=== PATIENT | female | born 1955 | race Caucasian/White ===

== ENCOUNTER 2025-01-20 15:52 | Day surgery (SDC) | payer MEDICARE, OTHER, SELFPAY ==
[2025-01-20] VITALS (19 sets, daily range): BP systolic 85–176; BP diastolic 40–90; PULSE 68–78; BMI 23.0
[2025-01-20 12:01] LABS: Hematocrit 41.9 % (37.0-47.0); Hemoglobin 13.4 g/dL (12.0-16.0); Mean Corp Hgb Conc. 32.0 g/dL (33.0-37.0); Mean Corpuscular Volume 88.8 fL (81.0-99.0); Nucleated Red Blood Cells % 0 %; Platelet Count 318 10^3/uL (130-400); Red Cell Dist. Width 13.4 % (11.5-14.5)
[2025-01-20 12:09] LABS: ALT (SGPT) 13 U/L (0-35); AST (SGOT) 21 U/L (14-36); Albumin 4.4 g/dl (3.5-5.0); Alkaline Phosphatase 57 U/L (38-126); Blood Urea Nitrogen 18 mg/dl (7-17); Calcium 9.4 mg/dl (8.4-10.2); Carbon Dioxide 29 mmol/L (22-30); Chloride 101 mmol/L (98-107); Estimated Creatinine Clearance 73 ml/min; Glucose 92 mg/dl (70-99); Potassium 4.2 mmol/L (3.5-5.1); Sodium 134 mmol/L (135-145); Total Protein 7.0 g/dl (6.3-8.2); eGFR > 60.00
--- NOTE | 2025-01-20 12:09 | ED.GENMED ---
History of Present Illness
<Angelique Turner PA-C - Last Filed: 01/20/25 19:43>
General
Chief Complaint: Cardiac Symptoms
Source: patient
Exam Limitations: none
Time Seen by Provider: 01/20/25 11:57
History of Present Illness
History of Present Illness:
69yoF with a history of asthma and hyperlipidemia presenting for evaluation of near syncope. She reports episodes of feeling like she is going to pass out over the past 2-3 weeks. Symptoms were initially sporadic but have become more frequent.
Symptoms tend to last a minute or two before resolving. Afterwards, she feels like 'something is moving across my chest.' Symptoms come on randomly. She has nodded off at times but does not believe she has lost consciousness. She discontinued
her statin for fear that this was causing her symptoms as her rosuvastatin was increased from 20mg to 40mg daily about a month ago. She started having nausea and vomiting last night. No chest pain, shortness of breath, abdominal pain.
Phy Exam
<Angelique Turner PA-C - Last Filed: 01/20/25 19:43>
General Physical Exam
General Presentation: well appearing and no apparent distress
General Skin: warm and dry
General Habitus: normal
General Mental: alert
ENT Exam
ENT Exam: normocephalic
Cardiovascular Exam
Cardiovascular Exam: regular rate/rhythm, no edema, no murmur and normal peripheral pulses
Pulmonary Exam
Pulmonary Exam: lungs clear, no respiratory distress, no rales, no crackles, no rhonchi and no wheezing
Neurological Exam
Neurological Exam: alert
[place] Coma Scale
Eye Opening: Spontaneous
Verbal Response: Oriented
Motor Response: Obeys Commands
GCS Total Score: 15
Skin Exam
Skin Exam: normal color and warm/dry
Psychiatric Exam
Psychiatric Exam: normal mood/affect
Course
<Angelique Turner PA-C - Last Filed: 01/20/25 19:43>
Orders/Labs/Results
Orders:
Orders
01/20/25 11:05
Electrocardiogram (*1) Urgent
Reason for Study: Chest Pain
EKG- Treatment ONCE
01/20/25 11:45
Troponin I Urgent
01/20/25 11:46
Complete Blood Count/With Diff Urgent
Comprehensive Metabolic Panel Urgent
Magnesium Urgent
Comment: ADD ON
TSH Urgent
Comment: ADD ON
01/20/25 12:14
Add On- LAB Urgent
Tests Added?: magnesium, TSH
Cardiac Monitoring- Treatment ONCE
01/20/25 12:50
CARDIOLOGY CONSULT Urgent
Consulting Provider: Pilo Daigle
Was physician already notified: Yes
01/20/25 Dinner
Cholesterol Lowering
At Your Request: Limited Participation
Does patient need a safe tray?: No
Cholesterol Lowering: Sodium, 2 Gram
01/20/25 15:28
Admit/Transfer Patient As Directed
Co-Sign Provider:
Level of Care: Observation services
Assign to:: Telemetry
Physician / Group: hospitalist
Diagnosis: near syncope
Reason for Telemetry: Syncope
Date to Stop Telemetry: 01/22/25
Time to Stop Telemetry: 11:00
Reason for Hospitalization: Near syncope
01/20/25 15:29
Code Status As Directed
Resuscitation Status: Full Code
01/20/25 16:43
Bisacodyl [Dulcolax] 10 mg RECTAL [id number] PRN
Docusate W/Senna [Senokot-S] 1 tablet PO BIDPRN PRN
Polyethylene Glycol Powder [Miralax] 17 grams PO DAILYPRN PRN
01/20/25 16:43
Echo 2D MMode Color/Doppler Routine
Reason for Study: syncope
Activity As Directed
Activity Level: Out of Bed-Early Mobility
Vital Signs As Directed
Frequency: Per unit guidelines
DX Deep Vein Thrombosis Video Routine
01/20/25 18:00
Enoxaparin Sodium [Lovenox] 40 mg SC QPM
01/21/25 06:00
Basic Metabolic Panel IN AM
Complete Blood Count/No Diff IN AM
Magnesium IN AM
01/22/25 11:00
DC Protocol for Telemetry ONCE
Abnormal Lab Results
01/20/25
11:46
MCHC 32.0 L g/dL
(33.0-37.0)
Lymphocytes % 19.0 L %
(20.5-51.1)
Sodium 134 L mmol/L
(135-145)
BUN 18 H mg/dl
(7-17)
01/20/25 11:46
01/20/25 11:46
Vital Signs
Initial and Last Documented VS:
Initial Vital Signs
Temp Pulse Resp BP Pulse Ox
97.8 F 75 16 176/77 100
01/20/25 11:01 01/20/25 11:01 01/20/25 11:01 01/20/25 11:01 01/20/25 11:01
Last Documented Vital Signs
Temp Pulse Resp BP Pulse Ox
98.3 F 71 18 145/70 98
01/20/25 17:02 01/20/25 17:02 01/20/25 17:02 01/20/25 17:02 01/20/25 17:19
<Maureen Kleley MD - Last Filed: 01/20/25 15:44>
Orders/Labs/Results
Orders:
Orders
01/20/25 11:05
Electrocardiogram (*1) Urgent
Reason for Study: Chest Pain
EKG- Treatment ONCE
01/20/25 11:45
Troponin I Urgent
01/20/25 11:46
Complete Blood Count/With Diff Urgent
Comprehensive Metabolic Panel Urgent
Magnesium Urgent
Comment: ADD ON
TSH Urgent
Comment: ADD ON
01/20/25 12:14
Add On- LAB Urgent
Tests Added?: magnesium, TSH
Cardiac Monitoring- Treatment ONCE
01/20/25 12:50
CARDIOLOGY CONSULT Urgent
Consulting Provider: Pilo Daigle
Was physician already notified: Yes
01/20/25 Dinner
Cholesterol Lowering
At Your Request: Limited Participation
Does patient need a safe tray?: No
Cholesterol Lowering: Sodium, 2 Gram
01/20/25 15:28
Admit/Transfer Patient As Directed
Co-Sign Provider:
Level of Care: Observation services
Assign to:: Telemetry
Physician / Group: hospitalist
Diagnosis: near syncope
Reason for Telemetry: Syncope
Date to Stop Telemetry: 01/22/25
Time to Stop Telemetry: 11:00
Reason for Hospitalization: Near syncope
01/20/25 15:29
Code Status As Directed
Resuscitation Status: Full Code
01/20/25 16:43
Bisacodyl [Dulcolax] 10 mg RECTAL [id number] PRN
Docusate W/Senna [Senokot-S] 1 tablet PO BIDPRN PRN
Polyethylene Glycol Powder [Miralax] 17 grams PO DAILYPRN PRN
01/20/25 16:43
Echo 2D MMode Color/Doppler Routine
Reason for Study: syncope
Activity As Directed
Activity Level: Out of Bed-Early Mobility
Vital Signs As Directed
Frequency: Per unit guidelines
DX Deep Vein Thrombosis Video Routine
01/20/25 18:00
Enoxaparin Sodium [Lovenox] 40 mg SC QPM
01/21/25 06:00
Basic Metabolic Panel IN AM
Complete Blood Count/No Diff IN AM
Magnesium IN AM
01/22/25 11:00
DC Protocol for Telemetry ONCE
Abnormal Lab Results
01/20/25
11:46
MCHC 32.0 L g/dL
(33.0-37.0)
Lymphocytes % 19.0 L %
(20.5-51.1)
Sodium 134 L mmol/L
(135-145)
BUN 18 H mg/dl
(7-17)
01/20/25 11:46
01/20/25 11:46
Vital Signs
Initial and Last Documented VS:
Initial Vital Signs
Temp Pulse Resp BP Pulse Ox
97.8 F 75 16 176/77 100
01/20/25 11:01 01/20/25 11:01 01/20/25 11:01 01/20/25 11:01 01/20/25 11:01
Last Documented Vital Signs
Temp Pulse Resp BP Pulse Ox
98.3 F 71 18 145/70 98
01/20/25 17:02 01/20/25 17:02 01/20/25 17:02 01/20/25 17:02 01/20/25 17:19
Marylt;Angelique Turner PA-C - Last Filed: 01/20/25 19:43>
MDM/Problems Addressed
Differential Diagnosis Includes:
69yoF here with recurrent episodes of near syncope x 2-3 weeks that are becoming more frequent. Patient had an episode prior to initial exam. Nursing staff noted that patient became bradycardic while she was sitting on the stretcher. Telemetry
reviewed and HR dropped to 40. Sinus bradycardia noted, no heart block seen. Differential diagnosis includes: Vasovagal episodes, symptomatic bradycardia, sick sinus syndrome, thyroid dysfunction
Initial ED plan: Workup initiated in triage. EKG shows normal sinus rhythm with short MS interval. Basic labs normal. Will add on magnesium, TSH, troponin, and discuss with cardiology.
<Angelique Turner PA-C - Last Filed: 01/20/25 19:43>
*Pulse Oximetry
SaO2: 98
Oxygen Mode of Delivery: Room air
Patient hypoxic: no
*EKG
Interpreted by ED Provider?: Yes
EKG Intrepretation Date: 01/20/25
Heart Rate: 76
Rate: normal
Rhythm: sinus
[place]: normal axis
Interval: short MS
QRS Pattern: normal QRS
Ischemia: non-specific ST changes
*Critical Care Note
Total Time (30-74mins, 75-104mins- exclusive of procedures): Not Applicable
<Angelique Turner PA-C - Last Filed: 01/20/25 19:43>
Update Note
Update Note:
TSH within the normal limits. Troponin undetectable. Patient had multiple subsequent episodes of near syncope while in ED. Cardiology consult pending. At this point, will admit for further evaluation.
ED Attending Note
<Angelique Turner PA-C - Last Filed: 01/20/25 19:43>
-
Portions of this chart may have been created with voice recognition software.� Occasional wrong word or��sound alike� substitutions may have occurred due to the inherent limitations of voice recognition software.
<Maureen Kelley MD - Last Filed: 01/20/25 15:44>
ED Attending Note
Patient seen and examined by attending physician: Yes
I performed the substantive portion of visit, reviewed & personally made and approve the management plan that is documented in note by myself or DASHAWN.: Yes
ED Attending Note:
I have seen and evaluated the patient with a [id number] encounter. I have spoken to the [DASHAWN] and involved in the medical history, the physical exam, medical decision making.
Evaluation and management service: agree unless noted differently below.
Results interpretation: agree unless noted differently below.
69-year-old woman who is otherwise healthy presenting to the emergency department near syncopal event. Patient states for the past 2 days with episodes of feeling she is going to pass out. Has never passed out. Denies any chest pain difficulty
breathing palpitations nausea vomiting diarrhea. On arrival patient's heart rate is in the 70s. Exam is otherwise reassuring. While patient was in the emergency department she did have an episode of bradycardia. Telemetry reviewed and it did
appear sinus. Will check blood work including thyroid and magnesium. EKG per my interpretation normal sinus rhythm with no obvious AV block. Given ongoing symptoms with the episodes of bradycardia and multiple episodes of near syncope in the
emergency department patient will benefit from admission.
Discharge Plan
Departure
Patient Disposition: Admit
Date of Disposition: 01/20/25
Time of Disposition: 14:57
Presentation/result/management discussed w/ accepting MD/DO: Hospitalist
Discharge Problem:
Near syncope
Interventions
Interventions:
*Risk Screen - Suicide Last Done: 01/20/25 11:01
*General Assessment Last Done: 01/20/25 11:01
*Neglect/Abuse Screening Last Done: 01/20/25 11:34
*ED- Fall Risk Assessment Last Done: 01/20/25 11:36
*ED COVID-19 Vaccine History Last Done: 01/20/25 11:36
*ED Influenza Vaccine History Last Done: 01/20/25 11:36
*Nursing Disposition Last Done: 01/20/25 16:35
ED- Pulmonary Assessment Last Done: 01/20/25 11:58
ED- Cardiac Assessment Last Done: 01/20/25 11:58
Discharge Date and Time
Discharge Date/Time: 01/20/25 16:44
[2025-01-20 12:43] LABS: Magnesium 2.2 mg/dl (1.6-2.3)
[2025-01-20 13:00] LABS: Troponin I < 0.012 ng/ml
--- NOTE | 2025-01-20 15:30 | CON.CAR ---
Addendum entered and electronically signed by Pilo Daigle DO 01/21/25 08:49:
I saw and examined the patient 01/20/2025 at 16:40
The Punch Finisher's note was reviewed and I agree with the note.
Comment:
Plan:
Admit for observation on tele for recurrent bradycardia and pauses
Check echo
She is not on any AV orestes blockers as outpt
Recurrent symptoms progressing over the last few weeks.
Trop negative.
We discussed indication for PPM if she has worsening symptomatic bradycardia or significant pauses.
Original Note:
Consultation
Consultation Request
Date/Time Consultation Performed: 01/20/25
Requesting Provider: Angelique Turner PA-C
Performing Provider: Kelly Nicholas PA-C for Dr. Daigle
Reason for Consultation: presyncope, bradycardia
Medical History
-
Chief Complaint: presyncope
History of Present Illness:
Patient is a 69 yo F with PMH of HLD, asthma, chronic sinus issues s/p multiple sinus surgeries on Neucala who presents due to 5-6 days of worsening presyncopal events. Patient reports has feeling that she is 'going down', gets lightheaded, and sits
down, lies down, or puts her head down on table and symptoms pass. She does not believe she has ever actually passed out with one of the episodes. She denies cardiac issues including susy or tachycardia or arrhythmias to her knowledge or in family
members. Denies new medications or supplements. Denies thyroid issues in past. States she stopped crestor after the dose was increased due to issues with word finding/inability to get them out. She states today while in ER was first time she had
episode while lying down. HR transiently decreased to 40s however then quickly recovered. Cardiology consulted for evaluation. Currently HR in 80s.
PMH:
HLD
Asthma
chronic sinus issues s/p multiple sinus surgeries on Neucala
Past Medical History
Past Medical History: Other (in HPI)
Social History
Tobacco: Non-Smoker
Alcohol: Occasional
Drug: None
Personal:
Living: With Family
Employment: Retired
Family History
Family History: Diabetes
Allergies / Home Medications
Allergy/AdvReac Type Severity Reaction Status Date / Time
brompheniramine (From Allergy Hives Verified 01/20/25 11:06
Drixoral)
dexbrompheniramine (From Allergy Hives Verified 01/20/25 11:06
Drixoral)
propoxyphene (From Darvon) Allergy Hives Verified 01/20/25 11:06
pseudoephedrine (From Allergy Hives Verified 01/20/25 11:06
Drixoral)
Review of Systems
-
History Source: Patient and Family
All other systems: Negative unless noted
Physical Exam
Vital Signs
Temp Pulse Resp BP Pulse Ox
97.8 F 65 17 107/40 99
01/20/25 11:01 01/20/25 14:45 01/20/25 14:45 01/20/25 14:37 01/20/25 14:45
Lab Results
01/20/25 11:46
01/20/25 11:46
Troponin I < 0.012 ng/ml 01/20/25 11:45
Physical Exam
General: No Apparent Distress and Comfortable
HEENT: Normocephalic, Anicteric and Moist Mucous Membranes
Respiratory: Clear and Non Labored Respirations
Cardiac: S1/S2 and Regular Rhythm
GI: Soft, Non Tender, Non Distended and Normal Bowel Sounds
Musculoskeletal: No Clubbing, No Cyanosis and No Edema
Skin: Warm and Dry
Neuro: AO x 3
Impression / Plan
-
Primary Front Elevator Operator: none
Assessment:
Presentation with recurrent presyncope/lightheadedness
Sinus bradycardia, transient
Negative trop x1
HLD
Asthma
Chronic sinus issues s/p multiple sinus surgeries on Neucala
ECHO 01/21/25: pending
Plan:
-Presented with episodes of recurrent presyncope over the last 5-6 days, progressive.
-denies CP, SOB, palpitations
-EKG SR. trop negative
-review of tele in ER with 2 episodes of transient sinus bradycardia. no pauses or high grade av block. ? vagal
-avoid dehydration
-check TSH
-check echo
-monitor on tele overnight. discussed pending findings, may require longer term OP cardiac monitoring
-consider check head CT with recent complaint of transient word finding difficulty, headaches, sinus issues, and episodes
-no present clear indication for PPM
-avoid av orestes blocking agents, not on as OP
-d/w resident. d/w patient and at bedside
Data Reviewed
-
EKG: Tracing Personally Visualized and interpreted
Labs: Labs Reviewed by me
Old Records: Reviewed
--- NOTE | 2025-01-20 15:31 | HPS.HSE ---
Family Physician
-
Family Physician: * NONE
Chief Complaint
-
lightheadedness
History of Present Illness
69-year-old female with history of hyperlipidemia,asthma, seasonal allergies presents today with near syncope. Patient notes that she has been feeling lightheaded for the past 1-1/2-week but the frequency increased yesterday and this morning. She
denies room spinning, falls, urinary symptoms, weakness, slurred speech. She notes a feeling of passing out. The symptoms are unrelated to change in position. Symptoms tend to last a minute or 2 before resolving. She had discontinued her statin
and the fear that this must be contributing to her symptoms, her Crestor was increased from 20 mg to 40 mg daily about a month ago. She only took the medication for few days and then stopped due to side effects, feeling like- ' words not coming out
of my mouth'. She denies family history of sudden cardiac arrest. She takes Nucala injection for asthma. She admits to mild headache, not new. She denies LOC, confusions, hallucinations. In the ED, 3 episodes of lightheadness and HR did drop to
43. Currently HR in 80s.
Medical History
Past Medical History
Past Medical History: Reports Hypercholesterolemia
Past Surgical History: Reports Gynocological ()
Social History
Tobacco: Non-smoker
Alcohol: None
Drug: None
Personal:
Living: With Family
Employment: Retired
Family History
Family History: Not pertinent
Allergies / Home Medications
Allergies reflects when Allergies were last updated in [facility].
Home Medications with original date entered in [facility]
Allergy/Medication List:
Allergies
Allergy/AdvReac Type Severity Reaction Status Date / Time
brompheniramine (From Allergy Hives Verified 01/20/25 11:06
Drixoral)
dexbrompheniramine (From Allergy Hives Verified 01/20/25 11:06
Drixoral)
propoxyphene (From Darvon) Allergy Hives Verified 01/20/25 11:06
pseudoephedrine (From Allergy Hives Verified 01/20/25 11:06
Drixoral)
Review of Systems
-
History Source: Patient
A 12 point ROS was completed and negative except as noted: Yes
Physical Exam
Vital Signs
Vital Signs
Temp Pulse Resp BP Pulse Ox
97.8 F 65 17 107/40 99
01/20/25 11:01 01/20/25 14:45 01/20/25 14:45 01/20/25 14:37 01/20/25 14:45
Physical Exam
General: Comfortable and Conversant
HEENT: NormoCephalic and Anicteric
Respiratory: Clear
Cardiac: S1/S2 and Regular Rhythm
GI: Soft, Non Tender and Non Distended
Musculoskeletal: No Edema
Skin: Warm and Dry
Neuro: AO x 3
Hematologic/Lymphatic: No Lymphadenopathy
Psych: Calm
Laboratory Results
-
01/20/25 11:46
01/20/25 11:46
Laboratory Results
Total Bilirubin 0.6 mg/dl (0.2-1.3) 01/20/25 11:46
AST 21 U/L (14-36) 01/20/25 11:46
ALT 13 U/L (0-35) 01/20/25 11:46
Alkaline Phosphatase 57 U/L (38-126) 01/20/25 11:46
Troponin I < 0.012 ng/ml 01/20/25 11:45
Data Reviewed
-
Medical Tests (Nuc Med, Echo, EKG etc): Report Reviewed by me and Discussed with Physician
Impression/Plan
-
IMPRESSION:
Near syncope
History of hyperlipidemia
History of asthma
History of seasonal allergies
PLAN:
Near syncope
Differential diagnosis: Conduction abnormality, cardiac arrhythmia, stroke ( low threshold) seizures(low threshold)
Admit for observation
Serum sodium 134 likely due to dehydration
One episode of transient sinus bradycardia. Not on rate control medications.
Check echocardiogram
Check orthostatic vitals
Monitor on telemetry
Apartment Groundskeeper aware
Hold off on CT scan for now.
If patient remains asymptomatic dc on Holter monitor
Check TSh
Monitor electrolytes, vitals signs.
History of hyperlipidemia
Not on any medications currently
History of asthma
Continue Nucala, montelukast
Hold pseudoephedrine
History of seasonal allergies
On Immunotherapy injections outpatient.
Full code
Cholesterol-lowering diet
DVT prophylaxis-Lovenox
[2025-01-20 17:10] LABS: TSH 1.25 uIU/ml (0.47-4.68)
[2025-01-20] MEDS: LOVENOX 40 MG SC (17:33)
--- NOTE | 2025-01-20 19:15 | PTCARENOTE ---
Patient with two episodes of symptomatic bradycardia in the 40s. Patient states the episodes are more frequent but shorter in duration. Encouraged to use call william when OOB.
[2025-01-21] VITALS (35 sets, daily range): BP systolic 65–147; BP diastolic 40–105; BMI 22.7
[2025-01-21 06:21] LABS: Hematocrit 37.7 % (37.0-47.0); Hemoglobin 12.6 g/dL (12.0-16.0); Mean Corp Hgb Conc. 33.4 g/dL (33.0-37.0); Mean Corpuscular Volume 87.3 fL (81.0-99.0); Platelet Count 292 10^3/uL (130-400); Red Cell Dist. Width 13.3 % (11.5-14.5)
[2025-01-21 07:04] LABS: Blood Urea Nitrogen 15 mg/dl (7-17); Calcium 9.1 mg/dl (8.4-10.2); Carbon Dioxide 29 mmol/L (22-30); Chloride 106 mmol/L (98-107); Estimated Creatinine Clearance 73 ml/min; Glucose 89 mg/dl (70-99); Magnesium 2.3 mg/dl (1.6-2.3); Potassium 3.9 mmol/L (3.5-5.1); Sodium 137 mmol/L (135-145); eGFR > 60.00
--- NOTE | 2025-01-21 07:15 | PTCARENOTE ---
Patient with episodes of symptomatic bradycardia to 40s at 1935, 2005, 2054, and 1. Patient reports lightheadedness and that each episode is happening more frequently, but for shorter intervals and less intense.
[2025-01-21 07:56] LABS: Glucose - Point of Care 90 mg/dl (70-99)
[2025-01-21 08:15] LABS: Hematocrit 41.0 % (37.0-47.0); Hemoglobin 13.4 g/dL (12.0-16.0); Mean Corp Hgb Conc. 32.7 g/dL (33.0-37.0); Mean Corpuscular Volume 86.9 fL (81.0-99.0); Platelet Count 318 10^3/uL (130-400); Red Cell Dist. Width 13.3 % (11.5-14.5)
--- NOTE | 2025-01-21 08:19 | W.PN.CARDCBS ---
Addendum entered and electronically signed by Pilo Daigle DO 01/21/25 10:47:
I saw and examined the patient 01/21/2025 this AM .
The Decorating Supervisor's note was reviewed and I agree with the note.
Comment:
Plan:
Symptomatic bradycardia with significant drop in HR this AM and episodes last night.
Discussed PPM and EP eval and she was agreeable.
Transfer to IVU with Zoll pads in place.
Echo pending.
Discussed with pt, nursing, primary service and EP
Original Note:
Today's Communication / Plan
-
NPO. plan for PPM today
pads in place
transfer to IVU
check echo
Impression / Plan
-
Primary Director Of Product Marketing: none
Assessment:
Presentation with recurrent presyncope/lightheadedness
Symptomatic sinus bradycardia
Negative trop x1
HLD
Asthma
Chronic sinus issues s/p multiple sinus surgeries on Neucala
ECHO 01/21/25: pending
Plan:
-Presented with episodes of recurrent presyncope over the last 5-6 days, progressive.
-responded to rapid response called this AM for episode of presyncope associated with symptomatic bradycardia and pauses up to 5 seconds in duration
-pads in place. will transfer patient to IVU
-NPO for PPM today. procedure reviewed with patient in detail and she is agreeable to proceed.
-echo pending
-TSH WNL
-denies recent known exposure to ticks/recent tick bites
-head CT negative for acute abnormality
-avoid av orestes blocking agents, not on as OP
-d/w hospitalist, nursing, THERMOSTAT MAKER, EP
-CCT 34 minutes
Progress Note - Director Of Product Marketing
Subjective
Date of Service: January 21, 2025
reports feeling lightheaded associated with episode of bradycardia, states less severe than some of her episodes at home
Objective
Labs:
01/21/25 08:00
Labs
Hgb 13.4 g/dL (12.0-16.0) 01/21/25 08:00
Hct 41.0 % (37.0-47.0) 01/21/25 08:00
Plt Count 318 10^3/uL (130-400) 01/21/25 08:00
Sodium 137 mmol/L (135-145) 01/21/25 05:33
Potassium 3.9 mmol/L (3.5-5.1) 01/21/25 05:33
BUN 15 mg/dl (7-17) 01/21/25 05:33
Creatinine 0.6 mg/dL (0.6-1.0) 01/21/25 05:33
Glucose 89 mg/dl (70-99) 01/21/25 05:33
Troponins
01/20/25
11:45
Troponin I < 0.012
Vital Signs and I&O:
Vital Signs
Temp Pulse Resp BP Pulse Ox
98.5 F 63 16 145/65 95
01/21/25 07:55 01/21/25 07:55 01/21/25 07:55 01/21/25 07:55 01/21/25 07:55
Vital Signs
Temp Pulse Resp BP Pulse Ox
98.5 F 63 16 145/65 95
01/21/25 07:55 01/21/25 07:55 01/21/25 07:55 01/21/25 07:55 01/21/25 07:55
Physical Exam
Physical Exam
GEN: No distress, awake, alert, oriented x3
HEENT: supple, anicteric, mmm, eomi
LUNGS: CTA B/L, no wheezes/rales
CV: Reg, S1/S2, no murmur
ABD: soft, BS+, NT/ND
EXT: No cyanosis, clubbing, edema
NEURO: Gross non-focal
SKIN: Warm, pink, dry. No rash
--- NOTE | 2025-01-21 08:30 | RR ---
property assessment monitor alarming HR 30. Patient appeared drowsy with gazed look, not communicating.
A Rapid Response was called on this patient, please see Rapid Response form.
[2025-01-21 08:39] LABS: Troponin I < 0.012 ng/ml
--- NOTE | 2025-01-21 08:44 | PTCARENOTE ---
received pt from 4E, report from RN. SR on monitor, vitals stable at this time. on 2L o2, 99%. Oriented to room and unit. Call william within reach.
--- NOTE | 2025-01-21 08:51 | W.PN.HOSP.TC ---
Today's Communication/Plan
-
Pacemaker
Echo
Assessment / Plan
Assessment / Plan
Gen-AAOx3, NAD
HEENT-NC, AT, anicteric, clear oral mm
Neck-supple
CV-reg, no M, +S1/S2
Lungs-clear B/L
Abd-soft, NT, ND
Ext-no edema
Musculoskeletal-no cyanosis, clubbing
Skin-warm and dry
Neuro-grossly non-focal
Psych-calm, cooperative
Symptomatic bradycardia -near syncopal episodes. Had another event this morning characterized by syncope according to nurses. Sinus pause on monitor.
Discussed with cardiology plans for permanent pacemaker today.
Transferred to IVU this morning. Keep NPO.
TSH 1.25.
Echocardiogram pending.
Hyponatremia - resolved.
Asthma -without exacerbation. On injections of Nucala. Montelukast. Advair, albuterol.
Hyperlipidemia -she discontinued rosuvastatin 6 weeks ago.
Allergic rhinitis
Full code
Anticipated Discharge: 24 - 48 hours
Subjective/Interval History
-
Date of Service: January 21, 2025
Patient seen and examined after rapid response was called for bradycardia. She is now awake, alert, without complaints.
Objective Data
-
Labs:
Laboratory Results
01/21/25 01/21/25 01/21/25
05:33 08:00 08:22
WBC 6.1 5.7
Hgb 12.6 13.4
Hct 37.7 41.0
Plt Count 292 318
Sodium 137 Cancelled Pending
Potassium 3.9 Cancelled Pending
Chloride 106 Cancelled Pending
Carbon Dioxide 29 Cancelled Pending
BUN 15 Cancelled Pending
Creatinine 0.6 Cancelled Pending
Glucose 89 Cancelled Pending
Calcium 9.1 Cancelled Pending
Total Bilirubin Cancelled Pending
AST Cancelled Pending
ALT Cancelled Pending
Alkaline Phosphatase Cancelled Pending
Vital Signs:
Vital Signs
Temp Pulse Resp BP Pulse Ox
98.5 F 78 16 136/66 95
01/21/25 07:55 01/21/25 08:45 01/21/25 07:55 01/21/25 08:38 01/21/25 07:55
Review of Systems
-
History Source: Patient
All other systems: Reviewed and negative
[2025-01-21] MEDS: 0.45%NACL 1000 IV (09:44)
--- NOTE | 2025-01-21 10:29 | W.PN.UPDATE ---
Update Note
Progress Note Update
Briefly, patient is a very pleasant 69-year-old female with a past medical history significant for dyslipidemia, asthma who presented due to worsening fatigue, near syncope, lightheadedness found to have symptomatic sinus bradycardia. During
hospitalization, patient experienced episodes of significant pauses leading to near syncope and altered mental status. Patient not on AV orestes blocking agents. Due to patient's significant symptomatic sinus bradycardia with altered mental status
and near syncope, patient to benefit from implantation of dual-chamber pacemaker. Regarding pacemaker, we discussed pacemaker indications and device implant in detail. For implant there is an approximate 1:1000 risk of NH/stroke/ and a 1% risk
of pneumothorax/tamponade/infection/bleeding. We also discussed post procedure implant restrictions including positions to avoid with implant arm for first six weeks after implant as well as driving restrictions. I took time to answer all questions.
Patient undergoing echocardiogram which is pending. Consent signed, patient remains n.p.o.
[2025-01-21 11:59] LABS: ALT (SGPT) 14 U/L (0-35); AST (SGOT) 23 U/L (14-36); Albumin 4.2 g/dl (3.5-5.0); Alkaline Phosphatase 57 U/L (38-126); Blood Urea Nitrogen 13 mg/dl (7-17); Calcium 9.1 mg/dl (8.4-10.2); Carbon Dioxide 27 mmol/L (22-30); Chloride 106 mmol/L (98-107); Estimated Creatinine Clearance 73 ml/min; Glucose 95 mg/dl (70-99); Potassium 3.9 mmol/L (3.5-5.1); Sodium 138 mmol/L (135-145); Total Protein 6.8 g/dl (6.3-8.2); eGFR > 60.00
--- NOTE | 2025-01-21 12:06 | CM ---
Reviewed chart. Met with and Mrs. Zelaya to review discharge plans. she states prior to admission she resides with her spouse in a two story hom3 with three steps to enter from the garage and two steps from the front. She states she has a full
flight of step to get to bedroom/full bathroom. She states she a powder room on the first floor. She states prior to admission she was independent with ambulation and adls. She states she does not have any DME in the home. She states she has a
prescription plan with [facility] and uses [facility]. The discharge plan is to return home with her spouse when medically stable.
--- NOTE | 2025-01-21 13:18 | PTCARENOTE ---
Pt left for labor arbitrator hearing office. Report given to RN. Pt wiped with CHG. at bedside updated on plan.
--- NOTE | 2025-01-21 13:25 | ITS.CL.PACE ---
Supervisor Print Line - Pacemaker Implant
Pacemaker Implant
Procedure Report:
Primary Spanish Linguist: Dr Pilo Daigle
Procedure Date: 01/21/2025
Name of procedure:
1. Placement of a dual-chamber pacemaker with left bundle area pacing lead for conduction system pacing
2. Subclavian venography
History:
1. Patient is a very pleasant 69-year-old female with a past medical history significant for dyslipidemia, asthma who presented due to worsening fatigue, near syncope, lightheadedness found to have symptomatic sinus bradycardia. During
hospitalization, patient experienced episodes of significant pauses >5 seconds leading to near syncope and altered mental status. Patient not on AV orestes blocking agents. Due to patient's significant symptomatic sinus bradycardia with altered
mental status and near syncope, patient to benefit from implantation of dual-chamber pacemaker.
2. Please refer to H&P for complete history.
Indication:
Symptomatic sinus bradycardia
Symptomatic pauses without reversible etiology
Methods:
After informed consent was obtained, the patient was brought to the EP laboratory in a postabsorptive, nonsedated state. Peripheral IV access was established. Prophylactic antibiotics were administered prior to incision. Continuous ECG, blood
pressure, and pulse oximetry were initiated. Cardioversion patch electrodes were placed on the patient's chest and back. A grounding patch was applied to the skin. Sedation was administered by anesthesia services.
In order to define the extrathoracic portion of the subclavian vein and exclude significant venous obstruction or anomalous anatomy, subclavian venography was performed prior to the procedure. Using the patient's left peripheral IV, contrast was
injected and images were recorded. The left subclavian vein and SVC were found to be widely patent.
The left chest was prepared and draped in a sterile fashion. A time-out was performed. Local anesthesia was injected in the subcutaneous tissue in the infraclavicular area. An incision was made medial to the deltopectoral groove. The subcutaneous
tissue was dissected the level of the prepectoral fascia. A subcutaneous pocket was created. Under fluoroscopic guidance and with the assistance of the images from the venogram, 2 separate venipunctures were made using micropuncture and modified
Seldinger technique. These were performed in the extrathoracic portion of the subclavian vein. Guidewires were passed and two peel-away sheaths were placed, and used to advance leads into the circulation.
Fluoroscopy was used to determine likely anatomic site for left bundle branch pacing. The [employer] C315 sheath was used to deliver the Medtronic 3830 Selectsecure pacing lead with the helix exposed just exposed from the sheath tip during continuous
monitoring when pacemapping the septum during gentle clockwise rotation to obtain a paced QRS morphology of a W pattern in lead V1. Once the suspected optimal site was identified, lead deployment was performed with several rapid rotations as paced
QRS morphology was intermittently monitored until a paced QRS complex in lead V1 demonstrated development of an R wave (qR or rSR). Unipolar pacing impedance dropped by approximately 100-200 ohms suggesting it had reached the left ventricular
subendocardial. Stable VEgm injury current is present throughout lead position and at end of case. Final unipolar pacing impedance is 930 Ohms. Unipolar pacing threshold is stable at 1.0 V @ 0.4 ms. The patient had pre-existing narrow QRS at
baseline. Final conduction system paced QRS complex duration is 101 ms, LVAT is 54 ms, and peak V5 -> peak V1 timing is 54 ms. The C315 sheath was slit under fluoroscopy ensuring lead position and stability.
Next, the right atrial lead was positioned in the right atrial appendage. Adequate sensing and pacing parameters were found, and no diaphragmatic stimulation was seen with high-output pacing. Both sheaths were split, and the leads were secured to
the fascia with Ethibond ties.
The pocket was flushed with antibiotic solution and hemostasis was assured. The generator was connected to the leads and placed inside the pocket. The device was sutured to the fascia. Antibiotic envelope was used. The wound was closed with 3
running layers of absorbable suture, and steri-strips were applied. Dressing applied over steri-strips in standard fashion.
Following the procedure, the patient was taken to the recovery area in stable condition. A chest x-ray to be obtained post procedure as routine.
Lead parameters and device programming:
- RA Lead ([employer], Model 5076, # [id number]): Sensing 2.6 mV, Pacing threshold 0.75 V at 0.4 ms, Imp 456 ohm
- RV Lead (Medtronic, Model 3830, #[id number]): Sensing 13.0 mV, Pacing threshold 0.5 V at 0.4 ms, Imp 684 ohm (bipolar)
- Device: Medtronic, Model W1 DR 01 pacemaker (# [id number]), programmed AAIR�DDDR mode switch on, 60-130 ppm
Conclusions:
1. Successful placement of a dual-chamber pacemaker with conduction system pacing (LBBAP)
2. Subclavian venography
Recommendations:
- Return to patient room
- Chest x-ray tonight, [facility] in AM.
- IV antibiotics while the patient is admitted.
- OK to resume home medications as indicated
- Pressure dressing to be removed in AM, aquacell to remain until wound check
- Follow-up will be arranged in the office in 7-10 days post-discharge for incision check
Tino Hernandez DO, FACC, RS
Clinical Cardiac Keyboard Teacher
cc: Dr Pilo Daigle
--- NOTE | 2025-01-21 15:41 | PTCARENOTE ---
Received pt back from labor and employment paralegal. Left arm immobilizer in place. Dressing CDI. EKG completed. SR on tele monitor, VSS. Educated on bedrest and restrictions. updated. Call william within reach.
[2025-01-21] MEDS: LOVENOX 40 MG SC (20:06)
[2025-01-21] MEDS: ANCEF 5 IV (22:03)
[2025-01-21] MEDS: SINGULAIR 10 MG PO (22:03)
--- NOTE | 2025-01-21 22:28 | PTCARENOTE ---
Assumed care on pt at change of shift, aaox3, having no c/o cp or SOB, Tylenol offered for soreness over pacer site and refused. SR on the monitor, HR 80's, Pox 96% RA, bp stable. Pressure dressing LCW clean dry and intact, no swelling or bleeding
noted, immobilizer kept on. Educated on limb restrictions and verbalizes understanding, call light within reach, POC on going.
[2025-01-22] MEDS: ANCEF 5 IV (04:50)
[2025-01-22 04:55] VITALS: BP 130/62
[2025-01-22 05:40] LABS: Hematocrit 36.9 % (37.0-47.0); Hemoglobin 12.1 g/dL (12.0-16.0); Mean Corp Hgb Conc. 32.8 g/dL (33.0-37.0); Mean Corpuscular Volume 86.6 fL (81.0-99.0); Platelet Count 261 10^3/uL (130-400); Red Cell Dist. Width 13.4 % (11.5-14.5)
[2025-01-22 05:59] LABS: Blood Urea Nitrogen 9 mg/dl (7-17); Calcium 8.9 mg/dl (8.4-10.2); Carbon Dioxide 27 mmol/L (22-30); Chloride 109 mmol/L (98-107); Estimated Creatinine Clearance 73 ml/min; Glucose 91 mg/dl (70-99); Potassium 3.7 mmol/L (3.5-5.1); Sodium 137 mmol/L (135-145); eGFR > 60.00
--- NOTE | 2025-01-22 06:43 | PTCARENOTE ---
Attempted x3 times to perform [facility] and not successful, will reattempt.
[2025-01-22 07:03] VITALS: BP 135/68
--- NOTE | 2025-01-22 07:18 | W.PN.CARDCBS ---
Today's Communication / Plan
-
stable for d/c
outpt follow up for wound check one week
follow up to be arranged. We will call pt with appt next 24 hrs
Impression / Plan
-
Primary Director Property: none
Impression:
Presentation with recurrent presyncope/lightheadedness
Symptomatic sinus bradycardia
Status post permanent pacemaker placement, dual-chamber Medtronic pacemaker, January 21, 2025
HLD
Asthma
Chronic sinus issues s/p multiple [facility]
ECHO 01/21/25: Normal left ventricular size and function with EF 60 to 65% and no significant valvular disease.
Plan:
-Presented with episodes of recurrent presyncope over the last 5-6 days, progressive. rapid response called this AM for episode of presyncope associated with symptomatic bradycardia and pauses up to 5 seconds in duration and pt transferred to IVU
for subsequent PPM placement 01/21.
Normal functioning permanent pacemaker.
Echo unremarkable
Troponins negative
Head CT negative for acute abnormality
Heart rate and blood pressure remained stable
Stable from a cardiac standpoint for discharge
Outpatient follow-up to be arranged including wound check 1 week.
Instructions reviewed
Discussed with nursing and primary service
Progress Note - Director Property
Subjective
Date of Service: January 22, 2025
Pt seen and examined. No complaints. No chest pain or shortness of breath.
Objective
Labs:
01/22/25 04:59
01/22/25 04:59
Labs
Hgb 12.1 g/dL (12.0-16.0) 01/22/25 04:59
Hct 36.9 % (37.0-47.0) L 01/22/25 04:59
Plt Count 261 10^3/uL (130-400) 01/22/25 04:59
Sodium 137 mmol/L (135-145) 01/22/25 04:59
Potassium 3.7 mmol/L (3.5-5.1) 01/22/25 04:59
BUN 9 mg/dl (7-17) 01/22/25 04:59
Creatinine 0.5 mg/dL (0.6-1.0) L 01/22/25 04:59
Glucose 91 mg/dl (70-99) 01/22/25 04:59
Troponins
01/20/25 01/21/25 01/21/25
11:45 08:00 08:00
Troponin I < 0.012 Cancelled < 0.012
Vital Signs and I&O:
Vital Signs
Temp Pulse Resp BP Pulse Ox
97.9 F 73 16 130/62 96
01/22/25 07:01 01/22/25 07:01 01/22/25 07:01 01/22/25 04:55 01/22/25 07:01
Vital Signs
Temp Pulse Resp BP Pulse Ox
97.9 F 73 16 130/62 96
01/22/25 07:01 01/22/25 07:01 01/22/25 07:01 01/22/25 04:55 01/22/25 07:01
Intake & Output
01/20/25 01/21/25 01/22/25 01/23/25
06:59 06:59 06:59 06:59
Intake Total 1240 / 1240
Balance 1240 / 1240
Physical Exam
Physical Exam
General: No acute distress, AAOX3
Neck: Negative JVD
Heart: Regular, Negative S3 positive S1/S2, Negative S4, No murmur
Lungs: CTA b/l, negative wheezes/rales/rhonchi
Abd: Positive BS, NT/ND, neg rebound/rigidity/guarding
Ext: Negative cyanosis/clubbing/edema
Neuro: nonfocal
[2025-01-22] MEDS: TYLENOL 650 MG PO (09:22)
--- NOTE | 2025-01-22 11:19 | W.DS.TRANS ---
DC Summary - Health Technician Hearing
-
Discharge Instructions:
Discharge Diagnosis/Procedures Bradycardia, Pacemaker implant
Diet Low Fat,Low Cholesterol
Activity As tolerated
Driving Restrictions No driving for 1 week
Bathing Restrictions None
Instructions:
Stand-Alone Forms: DC Inst - Implanted Device
Changes to Home Medications: No
Discharge Medications:
DC Medications w/original date entered in [employer]
mepolizumab 100 mg/mL subcutaneous auto-injector (Nucala) 100 mg SC Q4W Lung/Breathing Issues 01/20/25
montelukast 10 mg tablet (Singulair) 10 mg PO HS Lung/Breathing Issues 01/20/25
pseudoephedrine HCl 60 mg tablet 60 mg PO DAILYPRN PRN allergies 01/20/25
Home Medication Changes
Pending Results: No
[2025-01-22 12:04] VITALS: BP 130/56
--- NOTE | 2025-01-22 12:19 | W.PN.HOSP.TC ---
Today's Communication/Plan
-
Discharge
Assessment / Plan
Assessment / Plan
Gen-AAOx3, NAD
HEENT-NC, AT, anicteric, clear oral mm
Neck-supple
CV-reg, no M, +S1/S2
Lungs-clear B/L
Abd-soft, NT, ND
Ext-no edema
Musculoskeletal-no cyanosis, clubbing
Skin-warm and dry
Neuro-grossly non-focal
Psych-calm, cooperative
Symptomatic bradycardia -near syncopal episodes prior to admission, syncope in the hospital.
Clinically stable and improved after permanent pacemaker placement, 01/21. No pneumothorax on chest x-ray postprocedure.
TSH 1.25.
Echocardiogram showed normal LV size, wall thickness, systolic function, no regional wall motion abnormalities, EF 60 to 65%. No significant valvular disease.
Cleared by cardiology for discharge today, outpatient follow-up in 1 week.
Hyponatremia - resolved.
Asthma -without exacerbation. On injections of Nucala. Montelukast. Advair, albuterol.
Hyperlipidemia -she discontinued rosuvastatin 6 weeks ago.
Allergic rhinitis
Full code
Dispo -medically stable for discharge home today. Outpatient follow-up with PCP and cardiology.
32 minutes spent in discharge process.
Anticipated Discharge: Today
Subjective/Interval History
-
Date of Service: January 22, 2025
Patient seen and examined. No complaints.
Objective Data
-
Labs:
Laboratory Results
01/22/25
04:59
WBC 5.8
Hgb 12.1
Hct 36.9 L
Plt Count 261
Sodium 137
Potassium 3.7
Chloride 109 H
Carbon Dioxide 27
BUN 9
Creatinine 0.5 L
Glucose 91
Calcium 8.9
Vital Signs:
Vital Signs
Temp Pulse Resp BP Pulse Ox
97.5 F 65 18 130/56 99
01/22/25 12:04 01/22/25 12:04 01/22/25 12:04 01/22/25 12:04 01/22/25 12:04
I&O
01/21/25 01/22/25 01/23/25
06:59 06:59 06:59
Intake Total 1240 / 1240
Balance 1240 / 1240
Review of Systems
-
History Source: Patient
All other systems: Reviewed and negative
== END 2025-01-22 13:01 | disposition home or self-care (01) ==
LOC: SDS 15:52
PROVIDERS: Emergency Medicine; Nurse Practitioner; Physician Assistant; Student in an Organized Health Care Education/Training Program; ATTENDING PHYSICIAN Hospitalist; CONSULT PHYSICIAN Nuclear Medicine Nuclear Cardiology
DX: R00.1 Bradycardia, unspecified (principal); I95.9 Hypotension, unspecified; E78.00 Pure hypercholesterolemia, unspecified; J45.909 Unspecified asthma, uncomplicated; E87.1 Hypo-osmolality and hyponatremia
CPT/HCPCS: 33208; 70450; 71045; 80048; 80053; 82962; 83735; 84443; 84484; 85025; 85027; 93005; 93306; 99285; C1769; C1785; C1887; C1898; Q9967